=== PATIENT | female | born 1950 | race Caucasian/White ===

== ENCOUNTER 2017-03-12 21:47 | Inpatient (IN) | payer MEDICARE, OTHER ==
[~2017-03-12] VITALS: Ht 160 cm; Wt 67.1 kg
[2017-03-12] MEDS ORDERED: SENN-18 PO (22:36)
[2017-03-12] MEDS ORDERED: CALC500T71 PO (22:36)
[2017-03-12] MEDS ORDERED: AMLO2.5T2 PO (22:36)
[2017-03-12] MEDS ORDERED: METH10TA PO (22:36)
[2017-03-12] MEDS ORDERED: METH5TAB70 PO (22:36)
[2017-03-12] MEDS ORDERED: BACL10TA PO (22:36)
[2017-03-12] MEDS ORDERED: MAGN400O4 PO (22:36)
[2017-03-12] MEDS ORDERED: NA P133E RC (22:36)
[2017-03-12] MEDS ORDERED: DOCU-25 PO (22:36)
[2017-03-12] MEDS ORDERED: ACET-73 PO (22:36)
[2017-03-12] MEDS ORDERED: SACC250C6 PO (22:36)
[2017-03-12] MEDS ORDERED: CRAN425C PO (22:36)
[2017-03-12] MEDS ORDERED: BISA10SU12 RC (22:36)
[2017-03-12] MEDS ORDERED: MAGNESIUM HYDROXIDE 30 ML LIQUID UDC PO PRN (23:15)
[2017-03-12] MEDS ORDERED: ACETAMINOPHEN 325 MG TABLET PO PRN (23:15)
[2017-03-12] MEDS ORDERED: TEMAZEPAM 7.5 MG CAPSULE PO PRN (23:15)
[2017-03-12 23:35] VITALS: BP 166/113
[2017-03-13 07:30] VITALS: BP 158/89
[2017-03-13] MEDS ORDERED: BISACODYL 10 MG SUPP.RECT RC PRN (15:15)
[2017-03-13] MEDS ORDERED: ACETAMINOPHEN ES 500 MG TABLET PO PRN (15:15)
[2017-03-13] MEDS ORDERED: FLEET ENEMA 133 ML BOTTLE RC SCH (15:15)
[2017-03-13] MEDS ORDERED: BACLOFEN 10 MG TABLET PO PRN (15:15)
[2017-03-13] MEDS ORDERED: MAGNESIUM HYDROXIDE 30 ML LIQUID UDC PO PRN (15:15)
[2017-03-13 16:00] VITALS: BP 169/95
[2017-03-13] MEDS: SENNOSIDES 1 TABLET PO SCH (17:00)
[2017-03-13] MEDS ORDERED: Medication Not On Formulary EA (Saccharomyces Boulardii (Florastor) 250 MG) PO SCH (17:00)
[2017-03-13] MEDS: DOCUSATE SODIUM 100 MG CAPSULE PO SCH (17:00)
[2017-03-13] MEDS: CALCIUM CARBONATE 500 MG TABLET PO SCH (17:38)
[2017-03-13] MEDS: LORAZEPAM 0.5 MG TABLET PO PRN (17:38)
[2017-03-13] MEDS ORDERED: AMLODIPINE 2.5 MG TABLET PO ONE (17:45)
[2017-03-13] MEDS: DULOXETINE 30 MG CAPSULE.DR PO SCH (20:13)
[2017-03-13] MEDS: METHIMAZOLE 5 MG TABLET PO SCH (20:14)
[2017-03-13 20:18] VITALS: BP 156/92
[2017-03-13] MEDS ORDERED: AMLODIPINE 2.5 MG TABLET PO SCH (21:00)
[2017-03-14] MEDS: MAG HYDROX/AL HYDROX/SIMETH 30 ML LIQUID UDC PO PRN (02:49)
[2017-03-14] MEDS ORDERED: ONDANSETRON ODT 4 MG TAB.RAPDIS SL ONE (04:30)
[2017-03-14 07:30] VITALS: BP 141/97
[2017-03-14] MEDS: METHIMAZOLE 5 MG TABLET PO SCH ×2 (08:21→21:02)
[2017-03-14] MEDS: CALCIUM CARBONATE 500 MG TABLET PO SCH ×2 (08:21→17:31)
[2017-03-14] MEDS: DOCUSATE SODIUM 100 MG CAPSULE PO SCH ×2 (08:26→17:00)
[2017-03-14] MEDS: SENNOSIDES 1 TABLET PO SCH ×2 (08:26→17:00)
[2017-03-14] MEDS ORDERED: METHIMAZOLE 10 MG PO SCH (09:00)
[2017-03-14] MEDS ORDERED: Medication Not On Formulary EA (Cranberry Extract (Cranberry) 425 MG) PO SCH (09:00)
[2017-03-14] MEDS: AMLODIPINE 2.5 MG TABLET PO SCH (17:32)
[2017-03-14 20:36] VITALS: BP 159/77
[2017-03-14] MEDS: DULOXETINE 30 MG CAPSULE.DR PO SCH (21:02)
[2017-03-14] MEDS: MUPIROCIN 2% OINT 22 GM TUBE NS SCH (21:10)
[2017-03-15 07:30] VITALS: BP 129/84
[2017-03-15] MEDS: DOCUSATE SODIUM 100 MG CAPSULE PO SCH ×3 (09:00→17:00)
[2017-03-15] MEDS: SENNOSIDES 1 TABLET PO SCH ×3 (09:00→17:00)
[2017-03-15] MEDS: MUPIROCIN 2% OINT 22 GM TUBE NS SCH ×2 (09:24→20:22)
[2017-03-15] MEDS: MAG HYDROX/AL HYDROX/SIMETH 30 ML LIQUID UDC PO PRN (09:24)
[2017-03-15] MEDS: METHIMAZOLE 5 MG TABLET PO SCH ×2 (09:25→20:24)
[2017-03-15] MEDS: CALCIUM CARBONATE 500 MG TABLET PO SCH ×2 (09:25→17:19)
[2017-03-15] MEDS: AMLODIPINE 2.5 MG TABLET PO SCH ×2 (09:27→17:20)
[2017-03-15 15:16] VITALS: BP 158/78
[2017-03-15 20:20] VITALS: BP 149/81
[2017-03-15] MEDS: DULOXETINE 30 MG CAPSULE.DR PO SCH (20:21)
[2017-03-16] MEDS: MAG HYDROX/AL HYDROX/SIMETH 30 ML LIQUID UDC PO PRN (03:31)
[2017-03-16 07:30] VITALS: BP 165/95
[2017-03-16] MEDS ORDERED: FLEET ENEMA 133 ML BOTTLE RC PRN (07:32)
[2017-03-16] MEDS: MUPIROCIN 2% OINT 22 GM TUBE NS SCH ×2 (09:00→20:10)
[2017-03-16] MEDS: DOCUSATE SODIUM 100 MG CAPSULE PO SCH ×2 (10:17→16:40)
[2017-03-16] MEDS: CALCIUM CARBONATE 500 MG TABLET PO SCH ×2 (10:18→17:01)
[2017-03-16] MEDS: AMLODIPINE 2.5 MG TABLET PO SCH ×2 (10:18→17:01)
[2017-03-16] MEDS: SENNOSIDES 1 TABLET PO SCH ×2 (10:18→17:00)
[2017-03-16] MEDS: METHIMAZOLE 5 MG TABLET PO SCH ×2 (10:19→20:10)
[2017-03-16 16:01] VITALS: BP 160/91
[2017-03-16] MEDS: LORAZEPAM 0.5 MG TABLET PO PRN (17:01)
[2017-03-16] MEDS: DULOXETINE 30 MG CAPSULE.DR PO SCH (20:10)
[2017-03-16 20:23] VITALS: BP 151/84
[2017-03-17 07:30] VITALS: BP 161/89
[2017-03-17] MEDS: DOCUSATE SODIUM 100 MG CAPSULE PO SCH ×3 (08:18→17:00)
[2017-03-17] MEDS: METHIMAZOLE 5 MG TABLET PO SCH ×2 (08:18→20:32)
[2017-03-17] MEDS: AMLODIPINE 2.5 MG TABLET PO SCH ×2 (08:18→17:03)
[2017-03-17] MEDS: SENNOSIDES 1 TABLET PO SCH ×3 (08:18→17:00)
[2017-03-17] MEDS: CALCIUM CARBONATE 500 MG TABLET PO SCH ×2 (08:18→17:03)
[2017-03-17] MEDS: MUPIROCIN 2% OINT 22 GM TUBE NS SCH ×2 (08:19→21:17)
[2017-03-17 15:10] VITALS: BP 138/84
[2017-03-17 20:27] VITALS: BP 146/88
[2017-03-17] MEDS: DULOXETINE 30 MG CAPSULE.DR PO SCH (20:32)
[2017-03-18 07:30] VITALS: BP 155/81
[2017-03-18] MEDS ORDERED: Z GUARD REMEDY PASTE 57 GM TUBE TOP PRN (08:00)
[2017-03-18] MEDS: CALCIUM CARBONATE 500 MG TABLET PO SCH ×2 (08:16→16:58)
[2017-03-18] MEDS: DOCUSATE SODIUM 100 MG CAPSULE PO SCH ×2 (08:17→16:58)
[2017-03-18] MEDS: AMLODIPINE 2.5 MG TABLET PO SCH ×2 (08:17→16:59)
[2017-03-18] MEDS: MUPIROCIN 2% OINT 22 GM TUBE NS SCH ×2 (08:17→20:02)
[2017-03-18] MEDS: SENNOSIDES 1 TABLET PO SCH ×2 (08:17→16:58)
[2017-03-18] MEDS: METHIMAZOLE 5 MG TABLET PO SCH ×2 (08:18→20:03)
[2017-03-18 16:00] VITALS: BP 157/94
[2017-03-18 20:06] VITALS: BP 153/86
[2017-03-18] MEDS: DULOXETINE 30 MG CAPSULE.DR PO SCH (20:14)
[2017-03-19 01:10] VITALS: BP 152/81
[2017-03-19 08:00] VITALS: BP 157/93
[2017-03-19] MEDS: CALCIUM CARBONATE 500 MG TABLET PO SCH (08:01)
[2017-03-19] MEDS: MUPIROCIN 2% OINT 22 GM TUBE NS SCH (08:02)
[2017-03-19] MEDS: METHIMAZOLE 5 MG TABLET PO SCH (08:02)
[2017-03-19] MEDS: AMLODIPINE 2.5 MG TABLET PO SCH (08:05)
[2017-03-19] MEDS: DOCUSATE SODIUM 100 MG CAPSULE PO SCH (08:20)
[2017-03-19] MEDS: SENNOSIDES 1 TABLET PO SCH (08:20)
[2017-03-19 13:44] VITALS: BP 157/93
[2017-03-19 15:00] VITALS: BP 156/66
== END 2017-03-19 14:30 | DRG 885 ==
LOC: ER 21:59 → GPS 22:46
PROVIDERS: ADMIT Psychiatry & Neurology Psychosomatic Medicine; ATTEND Family Medicine
DX: F32.3 Major depressive disorder, single episode, severe with psychotic features (principal); F09 Unspecified mental disorder due to known physiological condition; M06.9 Rheumatoid arthritis, unspecified; G35 Multiple sclerosis; K21.9 Gastro-esophageal reflux disease without esophagitis; Z88.6 Allergy status to analgesic agent; Z88.8 Allergy status to other drugs, medicaments and biological substances; E05.90 Thyrotoxicosis, unspecified without thyrotoxic crisis or storm; I10 Essential (primary) hypertension; Z22.322 Carrier or suspected carrier of Methicillin resistant Staphylococcus aureus; Z87.891 Personal history of nicotine dependence; F41.9 Anxiety disorder, unspecified
CPT/HCPCS: 36415; 97001; A4663; Q0162